=== PATIENT | female | born 1970 | race Caucasian/White ===

== ENCOUNTER 2022-01-31 20:03 | Inpatient (IN) | payer OTHER ==
[~2022-01-31] VITALS: Ht 167.6 cm; Wt 141.5 kg
[2022-01-31 20:58] LABS: HEMOGLOBIN 13.3 gm/dl (12.3-15.3); RED BLOOD COUNT 4.68 M/UL (4.00-5.10); WHITE BLOOD COUNT 6.4 K/UL (4.5-11.0)
[2022-01-31 21:17] LABS: BUN/CREATININE RATIO 20 (0-10)
[2022-02-01] MEDS ORDERED: HYDROCODON-ACE1 EAC6 PO (09:48)
[2022-02-01] MEDS ORDERED: GABAPENTIN800 MG PO ×2 (09:50)
[2022-02-01] MEDS ORDERED: ZTLIDO1 EACH TP (09:51)
[2022-02-01] MEDS ORDERED: INSULIN LI100 UNIT/1 SQ (09:51)
[2022-02-01] MEDS ORDERED: MULTAQ 400 MG400 MG PO (09:51)
[2022-02-01] MEDS ORDERED: FUROSEMIDE40 MG PO (09:52)
[2022-02-01] MEDS ORDERED: TIZANIDINE HCL4 MG PO (09:52)
[2022-02-01] MEDS ORDERED: ZOFRAN 4 MG TAB4 MG PO (09:52)
[2022-02-01] MEDS ORDERED: ASPIRIN81 MG PO (09:53)
[2022-02-01] MEDS ORDERED: OMEPRAZOLE20 MG PO (09:53)
[2022-02-01] MEDS ORDERED: DOCUSATE SODIU100 MG PO (09:54)
[2022-02-01] MEDS ORDERED: NITROGLYCERIN0.4 MG SL (09:54)
[2022-02-02 06:30] LABS: HEMOGLOBIN 11.8 gm/dl (12.3-15.3)
[2022-02-02 06:31] LABS: RED BLOOD COUNT 4.18 M/UL (4.00-5.10); WHITE BLOOD COUNT 8.9 K/UL (4.5-11.0)
[2022-02-02 06:46] LABS: BUN/CREATININE RATIO 21 (0-10)
[2022-02-03 02:44] LABS: HEMOGLOBIN 11.6 gm/dl (12.3-15.3); RED BLOOD COUNT 4.08 M/UL (4.00-5.10); WHITE BLOOD COUNT 6.8 K/UL (4.5-11.0)
[2022-02-03 06:47] LABS: BUN/CREATININE RATIO 15 (0-10)
[2022-02-03] MEDS ORDERED: CEFUROXIME500 MG PO (09:57)
[2022-02-03] MEDS ORDERED: GLUCOPHAGE 850850 MG PO (10:02)
== END 2022-02-03 12:02 | disposition home or self-care (01) | DRG 872 ==
LOC: ER1 20:03 → M/S 22:25 → CDU 22:25 → M/S 02-01 00:30
PROVIDERS: Family Medicine; Internal Medicine Infectious Disease; ADMIT Internal Medicine
DX: A41.51 Sepsis due to Escherichia coli [E. coli] (principal); N30.00 Acute cystitis without hematuria; Z68.41 Body mass index [BMI] 40.0-44.9, adult; F11.20 Opioid dependence, uncomplicated; Z20.822 Contact with and (suspected) exposure to COVID-19; Z96.41 Presence of insulin pump (external) (internal); F41.9 Anxiety disorder, unspecified; E11.40 Type 2 diabetes mellitus with diabetic neuropathy, unspecified; G89.29 Other chronic pain; M51.36 Other intervertebral disc degeneration, lumbar region; I48.91 Unspecified atrial fibrillation; M54.9 Dorsalgia, unspecified; M79.605 Pain in left leg; M79.604 Pain in right leg; E66.01 Morbid (severe) obesity due to excess calories; E11.65 Type 2 diabetes mellitus with hyperglycemia; F32.A Depression, unspecified; I48.0 Paroxysmal atrial fibrillation; Z79.01 Long term (current) use of anticoagulants; Z79.4 Long term (current) use of insulin; Z79.82 Long term (current) use of aspirin; Z90.710 Acquired absence of both cervix and uterus; Z90.49 Acquired absence of other specified parts of digestive tract; Z83.3 Family history of diabetes mellitus; Z88.0 Allergy status to penicillin
CPT/HCPCS: 0240U; 36415; 71045; 80048; 80053; 81001; 82550; 82553; 82607; 82652; 82803; 82962; 83036; 83605; 83735; 84100; 84439; 84443; 84484; 85025; 87040; 87077; 87086; 87186; 96374; 99285; J0696; J1335; J1650; J2405; J7030